=== PATIENT | female | born 1960 | race Caucasian/White ===

== ENCOUNTER 2016-11-08 05:49 | Day surgery (SDC) | payer OTHER ==
[~2016-11-08] VITALS: Ht 170.2 cm; Wt 83.5 kg
[2016-11-08] VITALS (7 sets, daily range): BP systolic 113–130; BP diastolic 53–77
--- NOTE | ~2016-11-08 | S ---
[facility] [address] [place] [address] SURGICAL PATH RPT PROCEDURE Name: SUAD SOW Room #: DEP [facility]#: [id number] Admission: 11/08/16 Date of : 60 Discharge: 11/08/16 Report #: [id number] Path Case #: [id number] PATHOLOGY REPORT COLLECTION DATE: 11/08/2016 RECEIVED DATE: 11/08/2016 SUBMITTING PHYS: Dr. Gagan Lopez OTHER PHYS: Dr. Jeanine Lopez SPECIMEN(S) RECEIVED: A.Gallbladder * * * * * * * * * * * * FINAL DIAGNOSIS: Gallbladder, cholecystectomy: - Mild chronic cholecystitis. - Cholelithiasis. PATHOLOGIST: Sandra Chamberlain M.D. REPORT ELECTRONICALLY SIGNED BY: Sandra Chamberlain M.D. DATE/TIME: 11/09/2016 15:41 * * * * * * * * * * * * GROSS PATHOLOGY: Received in formalin labeled "Suad Sow gallbladder," is a 8.5 x 3.6 x 3.1 cm, intact gallbladder with smooth, shiny, pale graytan serosal surfaces. Opening the gallbladder reveals a pale orangeyellow, spongy, bile stained mucosa and an average wall thickness of 0.1 cm. Calculi are present and no masses are noted grossly. Elementary Tutor sections from the body and fundus are submitted along with the proximal margin in cassette A1. (SNA; 11/08/2016) CLINICAL HISTORY: Gallstones INITIAL CPT CODE(S): A; 59530 Professional services performed by [facility] at [facility] [address] [place] [address] Technical services performed by [facility] at [address] [place] [id number]. [facility] [address] [place] [address] SURGICAL PATH RPT PROCEDURE Name: SUAD SOW Room #: DEP [facility] Eze#: [id number] Admission: 11/08/16 Date of : 60 Discharge: 11/08/16 Report #: [id number] Path Case #: [id number] [facility] [address] [address] PHONE: [phone] DIRECTOR: Luis Robledo M.D. * * * END OF REPORT * * *
--- NOTE | ~2016-11-08 | O ---
[facility] [address] [place] [address] OPERATIVE REPORT Name: SUAD ABARCA Room #: 150-4 [facility]#: [id number] Admission: 11/08/16 Attend Phys: Gagan Lopez MD Discharge: Date of : 60 Report #: [id number] THIS REPORT FOR: //name// CC: Alf Lopez DATE OF SERVICE: 11/08/2016 PATIENT OF: Dr. Gagan Lopez, Dr. Alf Elias, and Dr. Darwin Damon. PREOPERATIVE DIAGNOSES: Cholelithiasis, cholecystitis, biliary colic, and mildly dilated common bile duct at 6 mm. POSTOPERATIVE DIAGNOSIS: Cholelithiasis, cholecystitis, biliary colic, and mildly dilated common bile duct at 6 mm. PROCEDURE: Laparoscopic cholecystectomy with intraoperative cholangiography and laparoscopic extensive lysis of adhesions. SURGEON: Gagan Lopez MD ON AIR PERSONALITY: Natasha Ford RN ANESTHESIA: General. DESCRIPTION OF PROCEDURE: The patient was brought to the operating room and placed on operative table in the supine position. Sequential compression devices were in place for DVT prophylaxis. She was given an appropriate preoperative dose of antibiotics. The patient underwent a general endotracheal anesthesia and the abdomen was then prepped and draped in a sterile fashion. Skin and subcutaneous tissue were then infiltrated around the umbilicus using 0.5% Marcaine. Transverse infraumbilical skin incision was then performed using #11 scalpel blade. Hemostasis obtained using electrocautery. Dissection was carried down through subcutaneous tissue of the fascia, which was then grasped between 2 Kojo clamps and incised with curved Gibbons scissors. Peritoneum was entered and a pursestring suture of 0 Vicryl was then placed in the fascia. A 12-mm Surgiport was then inserted through this opening and held into place with the balloon port and the pursestring suture. Pneumoperitoneum was obtained to a level of 10-15 mmHg. Laparoscope was inserted through this port and exploration was performed, which revealed a somewhat thickened dilated gallbladder with some adhesions. In the right lower quadrant, the patient had a previous appendectomy and there were numerous adhesions around the cecum. There were no other intraabdominal abnormalities. Two lateral 5-mm Surgiports as well as an upper [address] [address] OPERATIVE REPORT Name: SUAD ABARCA Bandar Room #: [address] [place] [address]#: [id number] Admission: 11/08/16 Attend Phys: Gagan Lopez MD Discharge: Date of : 60 Report #: [id number] midline 12-mm Surgiport were all inserted under direct visualization after infiltration with 0.5% Marcaine. The adhesions around the cecum were lysed using the hook electrocautery and the curved dissecting scissors. The cecum was completely freed up. Of note, the appendix was absent. The remaining portion of the ascending colon and small-bowel were otherwise normal. I then grasped the gallbladder and retracted superiorly and adhesions around the gallbladder were carefully dissected free using the hook electrocautery and the [place] dissector. The cystic duct and artery were then carefully dissected free. The cystic artery was then doubly clipped on each side and divided with the scissors. The cystic duct was then clipped at the neck of the gallbladder and a small opening was made in the cystic duct using the laparoscopic scissors. A TAUT laparoscopic cholangiogram catheter was then inserted into the abdomen through an Angiocath, threaded into the cystic duct and held into place with a clip. Under fluoroscopic guidance, intraoperative cholangiography was performed, which revealed a somewhat slightly dilated common bile duct, there were no intraluminal filling defects and there was free flow of contrast into the duodenum. The films were reviewed by the radiologist as well who concurred with the findings. The clip was then removed and catheter removed from the cystic duct and the cystic duct was then triply clipped on the common bile duct side and divided with the scissors. Gallbladder was then dissected free from the bed using the hook electrocautery. Prior to completing the dissection, the gallbladder was retracted superiorly and the bed inspected for hemostasis, which was obtained using electrocautery and found to be intact. Gallbladder was then transected and brought out through the periumbilical port and sent as specimen to pathology. The port was then returned to the abdomen. The area was then copiously irrigated with warm saline solution, which was suctioned free and hemostasis was checked and found to be intact. The ports were then all removed under direct visualization, hemostasis intact at each port site. Pneumoperitoneum was released and the periumbilical port was then also removed under direct visualization, hemostasis intact at that port site as well. Periumbilical fascia was then closed using the 0 Vicryl pursestring suture. The upper midline fascia was then closed using a [id number] 0 Vicryl suture. The skin was then closed using interrupted vertical mattress 5-0 nylon sutures and the wound was dressed with Band-Aids. The patient was then awakened from the general endotracheal anesthesia, extubated, and taken to recovery room in good condition. Estimated blood loss was less than 5 mL and the patient tolerated the procedure well. All sponge, lap and instrument counts correct times 2. By: [id number] Gagan Lopez MD /bro
[~2016-11-08 05:49] MED LIST: LEVOTHYROXIN0.075 MG PO; PRILOSEC 20 MG20 MG PO; ZOCOR20 MG PO
[2016-11-08] MEDS ORDERED: NORCO 5-325 TA1 EACH PO (11:44)
== END 2016-11-08 18:30 | disposition home or self-care (01) ==
LOC: TBA 05:49 → OR 05:49 → TBA 05:50 → OR 09:53 → 4N 13:08 → OR 14:17
DX: K80.10 Calculus of gallbladder with chronic cholecystitis without obstruction (principal); K83.8 Other specified diseases of biliary tract; Z90.49 Acquired absence of other specified parts of digestive tract; Z90.710 Acquired absence of both cervix and uterus; E78.00 Pure hypercholesterolemia, unspecified; E03.9 Hypothyroidism, unspecified
CPT/HCPCS: 50010; 50101; 50411; 50555; 50558; 51474; 51489; 52266; 53314; 55317; 56462; 56524; 56528; 62110; 62900; 70005